=== PATIENT | female | born 1940 | race Caucasian/White ===

== ENCOUNTER 2017-09-25 11:01 | Day surgery (SDC) | payer BC ==
[~2017-09-25] VITALS: Ht 160 cm; Wt 68.0 kg
[2017-09-25] MEDS ORDERED: POLYMYXIN 500,000/BACIT.10,000 UNITS in NS IRR 1 L IR ONE (12:47)
[2017-09-25] MEDS ORDERED: LR 1,000 ML IV SCH (13:12)
[2017-09-25] MEDS ORDERED: MEPERIDINE HCL/PF 25 MG/ML DISP.SYRIN IVP PRN (13:15)
[2017-09-25] MEDS ORDERED: METOCLOPRAMIDE HCL 10 MG/2 ML VIAL IVP PRN (13:15)
[2017-09-25] MEDS ORDERED: MEPERIDINE HCL/PF 50 MG/ML AMP IVP PRN ×2 (13:15)
[2017-09-25] MEDS ORDERED: CEFAZOLIN 2 GM IVPB PREMIX 50 ML IV ONE (13:50)
[2017-09-25] MEDS ORDERED: ONDANSETRON HCL 4 MG/2 ML VIAL IVP ONE (13:50)
[2017-09-25] MEDS ORDERED: LR 1,000 ML IV.SOLN IV ONE (13:50)
[2017-09-25] MEDS ORDERED: MIDAZOLAM HCL 5 MG/ML VIAL (VERSED) IV ONE (13:50)
[2017-09-25 14:45] VITALS: BP_SYST 158
[2017-09-25] MEDS ORDERED: HYDROcodone/ACETAMIN 10-325 MG TAB PO PRN (17:00)
[2017-09-25] MEDS ORDERED: HYDROcodone/ACETAMIN 10-325 MG TAB ONE (17:07)
== END 2017-09-25 18:05 | disposition home or self-care (01) ==
LOC: SDS 11:01 → EDBD 12:00 → SDS 18:05
PROVIDERS: ATTEND Orthopaedic Surgery
DX: S82.854A Nondisplaced trimalleolar fracture of right lower leg, initial encounter for closed fracture (principal); X58.XXXA Exposure to other specified factors, initial encounter; Y93.9 Activity, unspecified; Y92.89 Other specified places as the place of occurrence of the external cause; Y99.9 Unspecified external cause status; Z90.5 Acquired absence of kidney; Z90.710 Acquired absence of both cervix and uterus; Z88.8 Allergy status to other drugs, medicaments and biological substances; Z79.899 Other long term (current) drug therapy; I10 Essential (primary) hypertension; E11.40 Type 2 diabetes mellitus with diabetic neuropathy, unspecified
CPT/HCPCS: 27822; 76000; 82962; 93005; C1713 ×3; C1763; J0690; J2250; J2405; J7120